=== PATIENT | male | born 1975 | race Caucasian/White ===

== ENCOUNTER 2022-01-06 03:47 | Outpatient (CLI) | payer OTHER, SELFPAY ==
[2022-01-06 08:34] LABS: Hemoglobin A1C 5.6 % (<5.7)
[2022-01-06 09:13] LABS: Vitamin D 25 Total 32.2 ng/mL (30-100)
[2022-01-06 11:28] LABS: Anion Gap 10.5 mmol/L (3-11); BUN 17 mg/dL (7-18); CO2 25.5 mmol/L (21.0-32.0); CREATININE 1.2 mg/dL (0.70-1.30); Calculated LDL 84 mg/dL (<100); Chloride 103 mmol/L (98-107); Cholesterol 184 mg/dL (<200); Ferritin 209 ng/mL (26-388); Glucose 113 mg/dL (74-106); HDL Cholesterol 35 mg/dL (40-60); Potassium 3.9 mmol/L (3.5-5.1); Sodium 139 mmol/L (136-145); TSH 2.58 uIU/mL (0.36-3.74); Triglyceride 327 mg/dL (<150); Vitamin B12 463 pg/mL (193-986)
[2022-01-09 12:11] LABS: Insulin, Free 20.6 mcIU/mL (2.6 - 24.9); Insulin, Total 19.7 mcIU/mL (2.6 - 24.9)
== END 2022-01-06 03:48 | disposition home or self-care (01) ==
LOC: LBO 03:47
PROVIDERS: Visit Provider Surgery
DX: E66.01 Morbid (severe) obesity due to excess calories (principal); Z68.37 Body mass index [BMI] 37.0-37.9, adult
CPT/HCPCS: 36415; 80048; 80061; 82306; 83525; 83527; 82607; 82728; 83036; 84443

== ENCOUNTER → 2023-05-08 00:53 | Outpatient (CLI) | payer OTHER, SELFPAY ==
--- NOTE | 2023-05-08 | DI.RAD_ITS ---
Exam(s) XR SHOULDER LT COMPLETE 2+V EXAM: XR SHOULDER LT COMPLETE 2+V CLINICAL HISTORY: BILAT SHOULDER PAIN,M25.519,[id number]. TECHNIQUE: 2D digital imaging was performed. Five views. COMPARISON: No exams were available for comparison FINDINGS: BONES: No acute fracture is present. No bony destructive lesion is seen. JOINTS: No dislocation present. AC joint shows no significant spurring. The glenohumeral joint show s mild spurring but no significant joint space narrowing. SOFT TISSUE: Normal. IMPRESSION: Mild degenerative changes of the glenohumeral joint. DATA REPOSITORY: RADIATION DOSE DELIVERED:
--- NOTE | 2023-05-08 | DI.RAD_ITS ---
Exam(s) XR SHOULDER RT COMPLETE 2+V EXAM: XR SHOULDER RT COMPLETE 2+V CLINICAL HISTORY: BILAT SHOULDER PAIN, M25.519,[id number]. TECHNIQUE: 2D digital imaging was performed. Five views. COMPARISON: CR XR SHOULDER LT COMPLETE 2+V from 05/08/2023 FINDINGS: BONES: No acute fracture is present. No bony destructive lesion is seen. JOINTS: No dislocation present. Minimal spurring at AC joint and tip of acromion. Minimal spurring glenohumeral joint. SOFT TISSUE: Normal. IMPRESSION: Mild degenerative changes. DATA REPOSITORY: RADIATION DOSE DELIVERED:
--- NOTE | 2023-05-08 | DI.RAD_ITS ---
Exam(s) XR FINGER LT RING EXAM: XR FINGER LT RING CLINICAL HISTORY: PAIN LT RING FINGER, M79.645,[id number]. TECHNIQUE: 2D digital imaging was performed. Three views. COMPARISON: None. FINDINGS: BONES: No acute fracture is present. No bony destructive lesion is seen. JOINTS: No dislocation present. No joint space narrowing or periarticular spurring. SOFT TISSUE: Normal. IMPRESSION: Negative ring finger. DATA REPOSITORY: RADIATION DOSE DELIVERED:
== END ==
PROVIDERS: Visit Provider Physician Assistant
DX: M19.011 Primary osteoarthritis, right shoulder (principal); M19.012 Primary osteoarthritis, left shoulder
CPT/HCPCS: 73030; 73140

== ENCOUNTER 2023-12-19 20:33 | Emergency (ER) | payer OTHER, SELFPAY ==
--- NOTE | 2023-12-19 20:30 | DI.RAD_ITS ---
Exam(s) XR FOOT RT COMPLETE EXAM: XR FOOT RT COMPLETE CLINICAL HISTORY: diffuse pain to foot after knee/ankle injury. TECHNIQUE: 2D digital imaging was performed. COMPARISON: No exams were available for comparison FINDINGS: 3 views There is no evidence of acute fracture or diastasis of the Lisfranc joint. Great toe metatarsophalan geal joint appears unremarkable. No pes planus. No inferior calcaneal spur. Bone density normal. No osseous lesions. IMPRESSION: No acute osseous findings in the foot. DATA REPOSITORY: RADIATION DOSE DELIVERED:
--- NOTE | 2023-12-19 20:30 | DI.RAD_ITS ---
Exam(s) XR TIB/FIB RT EXAM: XR TIB/FIB RT CLINICAL HISTORY: R knee injury. TECHNIQUE: 2D digital imaging was performed. COMPARISON: No exams were available for comparison FINDINGS: Two views-AP and lateral. There is no evidence fracture of the tibia and fibula. No widening of the ankle mortise. Talar dome appears unremarkable. No joint space narrowing noted in the knee. Bone density normal. No osseous lesions IMPRESSION: No significant osseous findings in the tibia and fibula. DATA REPOSITORY: RADIATION DOSE DELIVERED:
[2023-12-19 20:36] VITALS: BP 131/74; PULSE 94; RESP 18; TEMP 36.7; O2SAT 96
--- NOTE | 2023-12-19 20:49 | ED.GENADUL_ITS ---
Discharge Plan Disposition Patient Disposition: Home Discharge Details Clinical Impression: Ankle sprain Primary Care Provider: Jenifer Vines ED Provider: Marycarmen Reed Home Meds and New Rx's Prescriptions: Continued montelukast 10 mg tablet 10 mg PO DAILY All Day Allergy (cetirizine) 10 mg capsule 10 mg PO DAILY PRN omeprazole 20 mg capsule,delayed release(DR/EC) 20 mg PO DAILY Dulera 50-5 mcg/actuation HFA aerosol inhaler 2 puff inhalation BID albuterol 90 mcg/actuation aerosol 2 mcg inhalation .TID PRN Discharge Instructions Instructions: Ankle Sprain (ED) Additional Instructions: Call orthopedics first thing Thursday to schedule follow-up appointment. I recommend you elevate your ankle above heart level, take ibuprofen 6 and 50 mg every 8 hours as needed for discomfort, apply ice for 15 to 20 minutes at a time, and rest as needed. Do not use any alcohol while you are taking ibuprofen. You may use the boot as needed for comfort/stability. Referrals: [facility] [Provider Group] HPI General Date/Time Provider Initiated Documentation: 12/19/23 20:37 . HPI Narrative: Vinay is a 48-year-old male who presents to the emergency department today for evaluation of right knee and ankle injury. He reports that he was playing basketball, says that he twisted his knee. His reports that she witnessed this, says another player fell and landed on top of his leg, causing it to twist. He has been unable to bear weight due to discomfort since incident. He has pain diffusely from the knee down to the toes. Pain is worsened with movement. No previous injury or surgery to this area. No other injuries reported. He denies head injury. Unsure when his last tetanus was, says he is sure is up-to-date. He denies regular alcohol use, says he only drinks socially. Today he had 8 alcoholic drinks. No bleeding disorders, GI bleeds, diabetes, heart or lung disease. Related Data Home Medications Medication Instructions Recorded Confirmed albuterol 90 mcg/actuation aerosol 2 mcg inhalation .TID PRN 12/19/23 12/19/23 inhaler cetirizine 10 mg capsule (All Day 10 mg PO DAILY PRN 12/19/23 12/19/23 Allergy (cetirizine)) mometasone-formoterol HFA 50 mcg-5 2 puff inhalation BID 12/19/23 12/19/23 mcg/actuation aerosol inhaler (Dulera) montelukast 10 mg tablet 10 mg PO DAILY 12/19/23 12/19/23 omeprazole 20 mg capsule,delayed 20 mg PO DAILY 12/19/23 12/19/23 release Allergies Allergy/AdvReac Type Severity Reaction Status Date / Time No Known Allergies Allergy Unverified 12/19/23 20:41 General Stated Complaint: Orthopedic ELIF: 4 Review of Systems Narrative: see HPI Exam Const General: cooperative, healthy appearing and no acute distress Extrem General: normal to inspection Right lower extremity: normal to inspection, normal capillary refill, no joint enlargement, knee Details: tenderness (diffuse) and abrasion, lower leg (diffuse tenderness) Details: no edema; no ecchymosis and no deformity, ankle Details: tenderness (diffuse) and edema (mild, lateral and medial malleolus); no lacerations and achilles tendon exam normal and foot Details: tenderness Location: of the dorsal foot; no edema Left lower extremity: normal to inspection and full ROM Course Vital Signs Vital signs: Vital Signs Temperature 36.7 C 12/19/23 20:36 Pulse 94 H 12/19/23 20:36 Respiratory Rate 18 12/19/23 20:36 Blood Pressure 131/74 12/19/23 20:36 Pulse Oximetry 96 12/19/23 20:36 Temperature 36.7 C 12/19/23 20:36 Temperature Source Temporal Artery Scan 12/19/23 20:36 Pulse 94 H 12/19/23 20:36 Respiratory Rate 18 12/19/23 20:36 Respiratory Effort Normal, Non-Labored 12/19/23 20:46 Blood Pressure 131/74 12/19/23 20:36 Pulse Oximetry 96 12/19/23 20:36 Oxygen Delivery Method Room Air 12/19/23 20:36 Oxygen Flow Rate 0 12/19/23 20:36 Medical Decision Making Vinay is a 48-year-old male who presents to the emergency department today for evaluation of right knee and ankle injury. He reports that he was playing basketball, says that he twisted his knee. His reports that she witnessed this, says another player fell and landed on top of his leg, causing it to twist. He has been unable to bear weight due to discomfort since incident. He has pain diffusely from the knee down to the toes. Pain is worsened with movement. No previous injury or surgery to this area. No other injuries reported. He denies head injury. Unsure when his last tetanus was, says he is sure is up-to-date. He denies regular alcohol use, says he only drinks socially. Today he had 8 alcoholic drinks. No bleeding disorders, GI bleeds, diabetes, heart or lung disease. Physical exam remarkable for diffuse tenderness with palpation and with movement to any, epperson, ankle, and dorsum of foot. Sensation intact to toes. No obvious swelling or ecchymosis. Abrasion noted to right knee, no active bleeding. DDx includes but is not limited to fracture, sprain, other soft tissue injury I independently interpreted the following tests: Right ankle and knee x-rays. No acute fracture noted. This was confirmed by radiologist, who did note a small effusion in the knee. While in the emergency department Vinay received ibuprofen for discomfort. He has been unable to weight-bear due to discomfort in his ankle/epperson. Ortho boot applied for comfort. Recommend follow-up with orthopedics for further evaluation/management of prob able ankle sprain. He is agreeable with plan of care. Reviewed symptomatic management with patient, including BLANCA. Quality:SDOH Health Related Social Needs: No Data to Display PFSH All Active Problems (Updated 12/19/23 @ 22:07 by Marycarmen Bloom) Ankle sprain (Acute) Social History Smoking/Tobacco Use Status: Never Smoking risk assessment performed?: Yes Alcohol Intake: current Alcohol Intake frequency: a few times a week Alcohol type: beer Drug use: Occasionally Substance use type: marijuana Housing: house [place] Have you Been Recently Intoxicated or Drunk Within the Last 30 days?: No Have you Ever Experienced Previous Episodes of Alcohol Withdrawal?: No Have you ever Experienced Withdrawal Seizures?: No Have you ever Experienced Delirium Tremens(DT)s?: No Have you ever undergone Alcohol Rehabilitation Treatment (i.e, inpt ot outpatient treatment programs)?: No Have you ever Experienced Blackouts?: No Have you ever Combined Alcohol with other Downers within the last 90 days?: No Have you ever Combined Alcohol with any other Substance of Abuse during the last 90 days?: No Result: 0
[2023-12-19] MEDS: Ibuprofen 600 MG TAB PO (21:06)
--- NOTE | 2023-12-19 21:32 | DI.VRAD_ITS ---
PROCEDURE INFORMATION: Exam: XR Right Tibia and Fibula Exam date and time: 12/19/2023 9:01 PM Age: 48 years old Clinical indication: Other: Radiating pain TECHNIQUE: Imaging protocol: Radiologic exam of the right tibia and fibula. Views: 2 views. COMPARISON: No relevant prior studies available. FINDINGS: Bones/joints: Bone density is appropriate. Alignment is anatomic. There is a small knee effusion appreciated on the lateral view. Soft tissues: Normal. IMPRESSION: Small knee effusion. Otherwise unremarkable exam. Dictated and Authenticated by: Princess Hoffman MD. Ordering:SAMRA Conroy MD
--- NOTE | 2023-12-19 21:33 | DI.VRAD_ITS ---
PROCEDURE INFORMATION: Exam: XR Right Foot Exam date and time: 12/19/2023 9:04 PM Age: 48 years old Clinical indication: Other: Radiating pain TECHNIQUE: Imaging protocol: Radiologic exam of the right foot. Views: 3 or more views. COMPARISON: CR XR TIB/FIB RT 12/19/2023 9:01 PM FINDINGS: Bones/joints: Normal. Soft tissues: Normal. IMPRESSION: No evidence for acute abnormality. Dictated and Authenticated by: Princess Hoffman MD. Ordering:SAMRA Conroy MD
[2023-12-19 22:10] VITALS: BP 130/62; PULSE 80; RESP 16; TEMP 36.9; O2SAT 98
== END 2023-12-19 22:10 | disposition home or self-care (01) ==
PROVIDERS: Emergency Provider Nurse Practitioner Family; PCP Family Medicine
DX: S93.401A Sprain of unspecified ligament of right ankle, initial encounter (principal); W51.XXXA Accidental striking against or bumped into by another person, initial encounter; Y93.67 Activity, basketball; Y92.39 Other specified sports and athletic area as the place of occurrence of the external cause
CPT/HCPCS: 99283; 73590; 73630

== ENCOUNTER 2024-01-03 15:21 | Emergency (ER) | payer OTHER, SELFPAY ==
[2024-01-03 15:23] VITALS: BP 169/72; PULSE 89; RESP 18; TEMP 36.6; O2SAT 96
--- NOTE | 2024-01-03 16:15 | ED.GENADUL_ITS ---
Discharge Plan Disposition Patient Disposition: Home Discharge Details Clinical Impression: Finger laceration with complication Primary Care Provider: Nilam Valdivia ED Provider: Jong Lundy Home Meds and New Rx's Prescriptions: New cephalexin 500 mg tablet 500 mg PO QID 3 Days Qty: 12 0RF Continued montelukast 10 mg tablet 10 mg PO DAILY All Day Allergy (cetirizine) 10 mg capsule 10 mg PO DAILY PRN omeprazole 20 mg capsule,delayed release(DR/EC) 20 mg PO DAILY Dulera 50-5 mcg/actuation HFA aerosol inhaler 2 puff inhalation BID albuterol 90 mcg/actuation aerosol 2 mcg inhalation .TID PRN Discharge Instructions Instructions: Laceration Repair With Stitches ED Additional Instructions: Watch for any signs of infection and return immediately to the emergency department if these occur. Otherwise keep dressing in place for the next 24 hours and then keep wound clean and dry and change dressing twice daily. Return to the emergency department 10 days for suture removal. We have discussed a referral to [facility] [place] due to peripheral nerve damage on the lateral/outside aspect of your little finger. If you change your mind and would like a referral please contact us back so that we can send that in for you. Referrals: [facility] [Outside] (as needed ) Discharge Data Discharge Date/Time-TO BE ENTERED AT DEPARTURE: 01/03/24 16:42 HPI General Mode of arrival: ambulatory . Date/Time Provider Initiated Documentation: 01/03/24 15:31 . Limitations to Documentation: no limitations . Information obtained by: patient and RN notes reviewed . History of Present Illness 48 year old M presents to the emergency department with the chief complaint of table saw injury- R little finger, described as moderate, Quality is described as sharp, and is localized to the right and upper extremity. Patient started experiencing this minute(s) (40) and it has been constant. No relieving factors improve symptom(s), No exacerbating factors reported . Patient notes no other symptoms.. Patient did receive the following treatments prior to arrival, none Related Data Home Medications Medication Instructions Recorded Confirmed albuterol 90 mcg/actuation aerosol 2 mcg inhalation .TID PRN 12/19/23 01/03/24 inhaler cetirizine 10 mg capsule (All Day 10 mg PO DAILY PRN 12/19/23 01/03/24 Allergy (cetirizine)) mometasone-formoterol HFA 50 mcg-5 2 puff inhalation BID 12/19/23 01/03/24 mcg/actuation aerosol inhaler (Dulera) montelukast 10 mg tablet 10 mg PO DAILY 12/19/23 01/03/24 omeprazole 20 mg capsule,delayed 20 mg PO DAILY 12/19/23 01/03/24 release cephalexin 500 mg tablet 500 mg PO QID 3 days #12 tabs 01/03/24 Previous Rx's Medication Instructions Recorded cephalexin 500 mg tablet 500 mg PO QID 3 days #12 tabs 01/03/24 Allergies Allergy/AdvReac Type Severity Reaction Status Date / Time No Known Allergies Allergy Unverified 01/03/24 15:27 General Stated Complaint: Laceration ELIF: 3 Review of Systems Cardiovascular Cardiovascular: Denies syncope and Denies lightheadedness Musculoskeletal Musculoskeletal: Denies deformity, Denies limited range of motion and Denies numbness Integumentary/Breasts Skin/Breast: Reports as per HPI Neurologic Neurologic: Denies syncope, Denies numbness and Denies paresthesias Exam Const General: cooperative and no acute distress Orientation: alert, awake and oriented x3 Limitations: mental status not altered Resp Effort & Inspection: normal respiratory effort and able to speak in complete sentences Cardio Rate: regular rate Rhythm: regular rhythm Pulses: normal peripheral pulses Neuro General: patient alert, patient awake, patient oriented x3, tone normal, moves all extremities and no focal motor deficits Motor: no movement abnormalities noted Extrem General: normal exam except as noted Right upper extremity: hand Details: laceration 5th digit ulnar aspect central Details: linear, actively bleeding, involving subcutaneous tissue and with motor nerve function intact; not involving muscle tissue and without sensation intact (Lack of 2-point discrimination to lateral aspect of fifth digit from the wound distal) Course Vital Signs Vital signs: Vital Signs Temperature 36.6 C 01/03/24 15:23 Pulse 89 01/03/24 15:23 Respiratory Rate 18 01/03/24 15:23 Blood Pressure 169/72 H 01/03/24 15:23 Pulse Oximetry 96 01/03/24 15:23 Temperature 36.6 C 01/03/24 15:23 Temperature Source Temporal Artery Scan 01/03/24 15:23 Pulse 89 01/03/24 15:23 Respiratory Rate 18 01/03/24 15:23 Respiratory Effort Normal, Non-Labored 01/03/24 15:27 Blood Pressure 169/72 H 01/03/24 15:23 Blood Pressure Position Sitting 01/03/24 15:23 Pulse Oximetry 96 01/03/24 15:23 Oxygen Delivery Method Room Air 01/03/24 15:23 Oxygen Flow Rate 0 01/03/24 15:23 Procedures Laceration Laceration 1: Site: hand Side (If applicable): right Size (cm): 3 Description: linear Depth: simple, single layer Local Anesthetic: Lidocaine 1% Amount of anesthesia used (mL): 2 Pre-repair: wound explored, irrigated extensively and deep structures intact Skin layer closed with: other (Prolene) Size (cm): 4-0 Number of sutures: 4 Technique: simple, interrupted Medical Decision Making Patient presenting to the emergency department for chief complaint of tablesaw injury to right fifth finger. Injury occurred approximately 30 minutes prior to arrival and he placed pressure on the wound and presented to the emergency department. Patient was able to verify that his last tetanus was in 2020 denies any other injury or trauma. Physical exam shows a 3 cm laceration to the ulnar aspect of the right fifth digit with loss of 2-point discrimination distal to the injury only on the ulnar side with full strength and movement intact. Please see procedure note for wound repair. Patient tolerated procedure well with no complications. Given mechanism of injury will place patient on short- term course of Keflex. After wound repair was done did discuss with patient referral to hand surgery but did also explain that they may or may not be able to repair a sensory peripheral nerve. After full discussion with patient patient decided to decline referral at this time but he was encouraged to contact the emergency department if he changes mind to have a referral placed to hand surgery for evaluation of nerve damage. After discussion of diagnosis and plan of care patient has no further needs, questions, or concerns and states clear understanding to return to the emergency department for any worsening symptoms. This documentation was generated using [email or web address].itation system, please disregard any oddities of phrase or misspellings. Quality:SDOH Health Related Social Needs: No Data to Display PFSH All Active Problems Finger laceration with complication (Acute) Ankle sprain (Acute ~12/19/23) Social History Smoking/Tobacco Use Status: Never Smoking risk assessment performed?: Yes Alcohol Intake: current Alcohol Intake frequency: a few times a week Alcohol type: beer Drug use: Occasionally Substance use type: marijuana Housing: house
[2024-01-03] MEDS: Cephalexin 500 MG CAP, 4 CAPS/BTL PO (16:36)
== END 2024-01-03 16:42 | disposition home or self-care (01) ==
PROVIDERS: Emergency Provider Nurse Practitioner Family; PCP Physician Assistant
DX: S61.216A Laceration without foreign body of right little finger without damage to nail, initial encounter (principal); W31.2XXA Contact with powered woodworking and forming machines, initial encounter; Y93.89 Activity, other specified
CPT/HCPCS: 12002; 99283

== ENCOUNTER 2024-06-14 01:06 | Outpatient (CLI) | payer OTHER, SELFPAY ==
--- NOTE | 2024-06-14 | DI.RAD_ITS ---
Exam(s) XR KNEE RT 3V AP,LAT,ISABELA EXAM: XR KNEE RT 3V AP,LAT,ISABELA CLINICAL HISTORY: BILAT KNEE STIFFNESS, RANGE OF MOTION, PAIN, M25.569,[id number]. TECHNIQUE: 2D digital imaging was performed of the right knee. Three views obtained. AP, lateral an d PA tunnel views were obtained. COMPARISON: CR,XR XR TIB/FIB RT from 12/19/2023 FINDINGS: BONES: No acute fracture is present. No bony destructive lesion is seen. JOINTS: The knee is normally aligned. No joint effusion is seen. SOFT TISSUE: Normal. IMPRESSION: Unremarkable radiographs of the right knee. DATA REPOSITORY: RADIATION DOSE DELIVERED:
--- NOTE | 2024-06-14 | DI.RAD_ITS ---
Exam(s) XR KNEE LT 3V AP,LAT,ISABELA EXAM: XR KNEE LT 3V AP,LAT,ISABELA CLINICAL HISTORY: BILAT KNEE STIFFNESS, RANGE OF MOTION,M25.569,PAIN,[id number]. TECHNIQUE: 2D digital imaging was performed of the left knee. Three images were obtained. AP, late ral and PA tunnel views were obtained. COMPARISON: No priors for comparison. FINDINGS: BONES: No acute fracture is present. No bony destructive lesion is seen. JOINTS: There is mild narrowing of the medial femoral tibial joint. Small osteophytes are seen at th e posterior patella. No joint effusion is seen. No loose body. SOFT TISSUE: Normal. IMPRESSION: Mild degenerative changes of the knee. DATA REPOSITORY: RADIATION DOSE DELIVERED:
== END 2024-06-14 01:26 ==
LOC: DI 01:07
PROVIDERS: PCP Physician Assistant; Visit Provider Physician Assistant
DX: M25.561 Pain in right knee (principal); M25.562 Pain in left knee
CPT/HCPCS: 73562